=== PATIENT | male | born 1970 | race Caucasian/White ===

== ENCOUNTER → 2020-07-23 | Outpatient (CLI) | payer BC ==
[2020-07-23 15:01] LABS: BASO % 0.3 % (0.0-2.0); EOS % 0.6 % (0-4.0); GRAN # 4.9 (1.4-6.5); HEMATOCRIT 44.8 % (42.0-52.0); HEMOGLOBIN 15.1 g/dl (13.5-18.0); LYMPH # 0.9 (1.2-3.4); LYMPH % 14.3 % (20.0-51.0); MEAN CELL VOLUME 100 fl (80.0-100.0); MEAN CORPUSCULAR HEMOGLOBIN 34 pg (27.0-31.0); MEAN CORPUSCULAR HGB CONC 34 g/dl (33.0-37.0); MONO # 0.4 (0.1-0.6); MONO % 6.5 % (1.7-9.3); PLATELET COUNT 296 K/mm3 (130-400); RED BLOOD COUNT 4.49 M/mm3 (4.20-5.60); REDCELL DISTRIBUTION WIDTH-CV 12.8 % (11.5-14.5)
== END ==
LOC: ZCOL.LAB 14:51
PROVIDERS: Family Medicine
DX: D58.2 Other hemoglobinopathies (principal)

== ENCOUNTER 2020-12-04 12:04 | Emergency (ER) | payer BC ==
[~2020-12-04] VITALS: Ht 177.8 cm; Wt 97.7 kg
[2020-12-04 12:13] VITALS: TEMP 98.1
[2020-12-04] MEDS ORDERED: NEXIUM 40MG40 MG PO (12:29)
[2020-12-04] MEDS ORDERED: PRINIVIL20 MG PO (12:29)
[2020-12-04] MEDS ORDERED: PLAQUENIL 200M200 MG PO (12:29)
[2020-12-04] MEDS ORDERED: ALLEGRA 180MG180 MG PO (12:30)
[2020-12-04] MEDS ORDERED: ULTRAM 50MG TAB50 MG PO (12:30)
[2020-12-04] MEDS ORDERED: ROBAXIN 75750 MG/TAB PO (12:30)
[2020-12-04] MEDS ORDERED: VALTREX 50500 MG/TAB PO (12:31)
[2020-12-04 13:02] LABS: BASO % 0.2 % (0.0-2.0); EOS % 0.7 % (0-4.0); GRAN # 4.6 (1.4-6.5); GRAN % 75.3 % (42.2-75.2); HEMATOCRIT 43.9 % (42.0-52.0); HEMOGLOBIN 15.2 g/dl (13.5-18.0); LYMPH # 0.9 (1.2-3.4); LYMPH % 14.1 % (20.0-51.0); MEAN CELL VOLUME 99 fl (80.0-100.0); MEAN CORPUSCULAR HEMOGLOBIN 34 pg (27.0-31.0); MEAN CORPUSCULAR HGB CONC 35 g/dl (33.0-37.0); MEAN PLATELET VOLUME 8.3 fl (7.4-10.4); MONO # 0.6 (0.1-0.6); MONO % 9.2 % (1.7-9.3); PLATELET COUNT 264 K/mm3 (130-400); RED BLOOD COUNT 4.44 M/mm3 (4.20-5.60); REDCELL DISTRIBUTION WIDTH-CV 12.8 % (11.5-14.5)
[2020-12-04 13:12] LABS: ALBUMIN 4.2 gm/dL (3.5-5.0); CALCIUM 8.9 mg/dL (8.4-10.2); CREATININE, serum 1.04 (0.66-1.25); TOTAL PROTEIN 7.5 gm/dL (6.4-8.2)
[2020-12-04] MEDS ORDERED: PERCOCET 325 MG1 TA2 PO (13:31)
[2020-12-04 14:12] VITALS: BP 138/98; PULSE 87
== END 2020-12-04 14:45 | disposition home or self-care (01) ==
LOC: COL.ER 12:04
PROVIDERS: Family Medicine
DX: S22.32XA Fracture of one rib, left side, initial encounter for closed fracture (principal); Z88.6 Allergy status to analgesic agent; Z88.2 Allergy status to sulfonamides; W01.198A Fall on same level from slipping, tripping and stumbling with subsequent striking against other object, initial encounter
CPT/HCPCS: J2270; J2405; Q9967

== ENCOUNTER 2020-12-06 09:53 | Emergency (ER) | payer BC ==
[~2020-12-06] VITALS: Ht 177.8 cm; Wt 97.7 kg
[~2020-12-06 09:53] MED LIST: ALLEGRA 180MG180 MG PO; NEXIUM 40MG40 MG PO; PERCOCET 325 MG1 TA2 PO; PLAQUENIL 200M200 MG PO; PRINIVIL20 MG PO; ROBAXIN 75750 MG/TAB PO; ULTRAM 50MG TAB50 MG PO; VALTREX 50500 MG/TAB PO
[2020-12-06 10:04] VITALS: TEMP 97.6
[2020-12-06 10:28] LABS: COLLECTION METHOD CLEAN CATCH
[2020-12-06 10:38] LABS: MUCOUS Present /lpf; PH 5 (5-8); SQUAMOUS EPITHELIAL None Seen /hpf; URINE APPEARANCE Clear; URINE BACTERIA None Seen /hpf; URINE BILIRUBIN Negative (NEGATIVE); URINE BLOOD Negative (NEGATIVE); URINE COLOR Amber; URINE GLUCOSE Negative (NEGATIVE); URINE KETONE Trace (NEGATIVE); URINE LEUKOCYTE ESTERASE Negative (NEGATIVE); URINE NITRATE Negative (NEGATIVE); URINE PROTEIN(semi-quant) 1+ (NEGATIVE); URINE UROBILINOGEN Negative (NEGATIVE)
[2020-12-06] MEDS ORDERED: PERCOCET 325 MG1 TA2 PO (11:09)
[2020-12-06] MEDS ORDERED: MEDROL 4MG DOSPA4 MG PO (11:24)
[2020-12-06 11:25] VITALS: BP 140/85; PULSE 86
== END 2020-12-06 11:25 | disposition home or self-care (01) ==
LOC: COL.ER 09:53
PROVIDERS: Nurse Practitioner
DX: S32.019A Unspecified fracture of first lumbar vertebra, initial encounter for closed fracture (principal); S22.32XA Fracture of one rib, left side, initial encounter for closed fracture; S30.1XXA Contusion of abdominal wall, initial encounter; I10 Essential (primary) hypertension; Z88.2 Allergy status to sulfonamides; Z88.5 Allergy status to narcotic agent; W18.30XA Fall on same level, unspecified, initial encounter

== ENCOUNTER → 2021-01-26 | Outpatient (CLI) | payer BC ==
[~2021-01-26] MED LIST changes: +MEDROL 4MG DOSPA4 MG PO
== END ==
LOC: COL.PUL 08:00
DX: R06.02 Shortness of breath (principal); Z87.891 Personal history of nicotine dependence

== ENCOUNTER → 2021-04-07 | Outpatient (CLI) | payer BC | LOC: COL.PUL 09:14 | DX: R06.02 Shortness of breath (principal) | CPT/HCPCS: J7674 ==